=== PATIENT | female | born 1945 | race Caucasian/White ===

== ENCOUNTER 2017-03-11 09:42 | Day surgery (SDC) | payer MEDICARE, OTHER ==
[~2017-03-11 09:42] MED LIST: PROPOFOL INJ 200 MG/20 ML VIAL IV ONE
[2017-03-11 12:24] VITALS: BP 124/59
--- NOTE | 2017-03-11 13:00 | Operative Report ---
Operative Report DATE OF SURGERY: 03/11/17 Operative Report: The risks, benefits and alternatives of the procedure including risks of bleeding, perforation requiring surgery are explained to the patient detail and informed consent is obtained. Patient is taken back to the endoscopy suite and placed in a left, lateral decubital position. Timeout is called. Propofol medication is administered. An Olympus videoscope was inserted into the patient 's rectum the scope was then gradually advanced all the way to the cecum ,the cecum was identified by the usual anatomical landmarks of the ileocecal valve as well as the appendiceal office. Photodocumentation is obtained. Prep is good. Scope was then sequentially pulled back via the rest segments of the colon including the ascending colon, hepatic flexure, transverse colon, splenic flexure, descending colon and finally into the rectosigmoid portions of the colon. Which infection maneuvers performed. PREOPERATIVE DIAGNOSIS: Colon cancer screening. POSTOPERATIVE DIAGNOSIS: Colon polyp in the ascending colon is removed via biopsy forceps. Diverticulosis. Internal hemorrhoids OPERATION: Colonoscopy with biopsy SURGEON: SUNDEEP WYATT ANESTHESIA: LMAC TISSUE REMOVED OR ALTERED: Colon polyp is retrieved. COMPLICATIONS: None. ESTIMATED BLOOD LOSS: none. INTRAOPERATIVE FINDINGS: Colon polyp in the ascending colon is removed via biopsy forceps. Sigmoid diverticulosis. Internal hemorrhoids PROCEDURE: Patient tolerated the procedure well. No immediate postprocedure complications are noted. Patient is discharged in good condition. Discharge date 03/11/2017. Discharge diet: Regular. Discharge activity: Regular. 2-3 week follow-up to discuss findings. Patient is instructed to call the office or proceed to the emergency room should there be any further problems or questions. Five-year surveillance. We'll await on biopsies.
== END 2017-03-11 12:20 | disposition home or self-care (01) ==
LOC: END 09:42
PROVIDERS: ATTEND Internal Medicine Gastroenterology
PROC: 0DBK8ZX Excision of Ascending Colon, Via Natural or Artificial Opening Endoscopic, Diagnostic (ICD-10-PCS; principal; 2017-03-11 12:30)
DX: Z12.11 Encounter for screening for malignant neoplasm of colon (principal); K63.5 Polyp of colon; I10 Essential (primary) hypertension; E78.00 Pure hypercholesterolemia, unspecified; M19.90 Unspecified osteoarthritis, unspecified site; K57.30 Diverticulosis of large intestine without perforation or abscess without bleeding; K64.8 Other hemorrhoids; G20 Parkinson's disease; E07.9 Disorder of thyroid, unspecified; E66.9 Obesity, unspecified; Z79.899 Other long term (current) drug therapy; Z68.38 Body mass index [BMI] 38.0-38.9, adult
CPT/HCPCS: 45380; 88305 ×2; J2704; 810

== ENCOUNTER 2017-03-28 08:14 | Day surgery (SDC) | payer MEDICARE, OTHER ==
[2017-03-22 09:45] LABS: ABSOLUTE EOSINOPHILS # (AUTO) 0.1 10^3/uL (0.0-0.6); ABSOLUTE LYMPHOCYTES (AUTO) 1.2 10^3/uL (0.5-4.7); ABSOLUTE MONOCYTES (AUTO) 0.5 10^3/uL (0.1-1.4); ABSOLUTE NEUT (AUTO) 3.7 10^3/uL (1.7-8.2); BASOPHILS % (AUTO) 0.7 % (0-2); EOSINOPHILS % (AUTO) 1.9 % (0-6); HEMATOCRIT 40.9 % (36.0-47.0); HEMOGLOBIN 13.9 g/dL (12.0-15.5); HGB HCT DIFFERENCE 0.8; LYMPHOCYTES % (AUTO) 22.5 % (13-45); MEAN CORPUSCULAR HEMOGLOBIN 28.6 pg (27.0-33.4); MEAN CORPUSCULAR HGB CONC 34.1 g/dL (32.0-36.0); MEAN CORPUSCULAR VOLUME 84 fl (80-97); MONOCYTES % (AUTO) 8.8 % (3-13); RED BLOOD COUNT 4.88 10^6/uL (3.72-5.28); RED CELL DISTRIBUTION WIDTH 14.4 % (11.5-14.0); SEGMENTED NEUTROPHILS % (AUTO) 66.1 % (42-78); WHITE BLOOD COUNT 5.5 10^3/uL (4.0-10.5)
[2017-03-22 09:46] LABS: APPEARANCE,URINE CLEAR; BILIRUBIN,URINE NEGATIVE (NEGATIVE); GLUCOSE, URINE NEGATIVE (NEGATIVE); KETONES,URINE NEGATIVE (NEGATIVE); LEUKOCYTE ESTERASE,URINE NEGATIVE (NEGATIVE); NITRITE,URINE NEGATIVE (NEGATIVE); PROTEIN,URINE NEGATIVE (NEGATIVE); URINE SPECIFIC GRAVITY 1.013; UROBILINOGEN,URINE NEGATIVE mg/dL (<2.0)
[2017-03-22 10:06] LABS: ANION GAP 14 (5-19); BLOOD UREA NITROGEN 16 mg/dL (7-20); CALCIUM 10.5 mg/dL (8.4-10.2); CARBON DIOXIDE 26 mmol/L (22-30); CHLORIDE 104 mmol/L (98-107); CREATININE RESULT 0.65 mg/dL (0.52-1.25); GLUCOSE 107 mg/dL (75-110); POTASSIUM 3.8 mmol/L (3.6-5.0); SODIUM 143.6 mmol/L (137-145)
--- NOTE | 2017-03-22 21:53 | EKG REPORT ---
SEVERITY:- ABNORMAL ECG - SINUS RHYTHM NONSPECIFIC INTRAVENTRICULAR CONDUCTION DELAY : Confirmed by: Jodie Arvizu MD 22-Mar-2017 21:51:30
[~2017-03-28 08:14] MED LIST changes: +BUPIVACAINE HCL 0.25 % INJ/PF (2.5 MG/1 ML) 30 ML VIAL ONE; +BUPIVACAINE HCL 0.25% /EPINEPHRINE INJ/PF 30 ML SDV ONE; +CEFAZOLIN 2 GM/D5W RTU 2 GM/50 ML RTUPB IV PRN; +LACTATED RINGERS 1000 ML IV PRN; +LIDOCAINE 0.5% INJ-PF (5 MG/ML) 50 ML SDV SUBCUT PRN; +LIDOCAINE 1%/EPINEPHRINE INJ 20 ML VIAL ONE; -PROPOFOL INJ 200 MG/20 ML VIAL IV ONE
[2017-03-28] MEDS ORDERED: FENTANYL CITRATE INJ/PF 100 MCG/2 ML AMPUL ONE (09:58)
[2017-03-28] MEDS ORDERED: PROPOFOL INJ 200 MG/20 ML VIAL IV ONE (09:58)
[2017-03-28] MEDS ORDERED: MIDAZOLAM 2 MG/2 ML INJ ONE (09:58)
[2017-03-28] MEDS ORDERED: MORPHINE SULFATE 10 MG/ML INJ IV PRN (10:30)
[2017-03-28] MEDS ORDERED: MEPERIDINE HCL/PF INJ 25 MG/1 ML DISP.SYRIN IV PRN (10:30)
[2017-03-28] MEDS ORDERED: OXYCODONE-ACETAMINOPHEN 5-325 MG TABLET PO PRN ×2 (10:30)
[2017-03-28] MEDS ORDERED: DIPHENHYDRAMINE HCL 50 MG/ML VIAL IV PRN (10:30)
[2017-03-28] MEDS ORDERED: FENTANYL CITRATE INJ/PF 100 MCG/2 ML AMPUL IV PRN ×3 (10:30)
[2017-03-28] MEDS ORDERED: PROMETHAZINE HCL INJ 25 MG/1 ML VIAL IV PRN ×2 (10:30)
--- NOTE | 2017-03-28 11:13 | Operative Report ---
Operative Report DATE OF SURGERY: 03/28/17 PREOPERATIVE DIAGNOSIS: Right carpal tunnel syndrome POSTOPERATIVE DIAGNOSIS: Same OPERATION: Right carpal tunnel release SURGEON: MARCELINO FOREMAN ANESTHESIA: LMAC TISSUE REMOVED OR ALTERED: None COMPLICATIONS: None ESTIMATED BLOOD LOSS: <5ml INTRAOPERATIVE FINDINGS: As above PROCEDURE: Patient received preoperative antibiotics and then was brought to the OR and in a supine position was given local sedation. A up her arm tourniquet was applied to right upper extremity. I proceeded then to sterilize the hand with alcohol and proceeded to give a combination of lidocaine and Marcaine local field injection. At this point the right hand was prepped and draped in a normal surgical fashion. Once she is fully draped Esmarch was used to exsanguinate the right upper extremity and the tourniquet was inflated to 250 mmHg. Timeout was done identifying the right hand as correct site. At this point I did a inch and a half incision over the lateral aspect of the palm right over the carpal tunnel ligament. I used Metzenbaum scissors then to spread the subcutaneous tenderness fat and the palmar fascial with a self- retaining retractor was able then to retract the edges and I use a freer to expose the carpal tunnel ligament. I found the most distal end first and placed a small mosquito clamp. This protected the nerve and I then did an initial cut of the transverse carpal ligament. I migrated the clamp further to Further protect the median nerve and then excised the remaining ligament. [place] was used to depress the median nerve and then I used Metzenbaum scissors to then released the fascial tissue in the proximal forearm. I then proceeded to identify the median nerve and the motor branch of the median nerve which were intact. At this point the tourniquet was let down after 13 minutes and a bipolar was used to obtain hemostasis of any vessel bleed. I then proceeded to place 3 subcutaneous tissue sutures using 2-0 Vicryl. I then proceeded to place 3 3-0 nylon horizontal mattress stitches to close the skin layer. Xeroform 4 x 4 dressing and Tegaderm was applied over the wound. Patient was undraped and then sent to PACU in stable condition.
--- NOTE | 2017-03-28 11:17 | PDOC DISCHARGE SUMMARY ---
Discharge Summary (SDC) - Discharge Final Diagnosis: Right carpal tunnel release Date of Surgery: 03/28/17 Discharge Date: 03/28/17 Condition: Good Treatment or Instructions: Keep the right upper extremity elevated. Ice as needed. Change in 4 days, after that okay to shower and leave wound exposed to air. Follow-up in 10-14 days. Call back or see me sooner if there is any drainage redness increased pain and swelling out of proportion. Prescriptions: Hydrocodone/Acetaminophen [[place] 5-325 mg Tablet] 1 tab PO Q4HP PRN #10 tablet PRN Reason: Discharge Diet: As Tolerated Respiratory Treatments at Home: Deep Breathing/Coughing Discharge Activity: No Driving, No Lifting/Push/Pulling, Slowly Increase Activity, Walk Frequently Home Care Assistance: None Needed Report the Following to Your Physician Immediately: Shortness of Breath, Vomiting, Increase in Pain, Fever over 101 Degrees, Unusual Bleeding, Redness, Swelling, Warmth, Increased Soreness, Drainage-Yellow, Drainage-Joseph, Drainage- Foul Smelling, Numbness, Tingling Sensation
[2017-03-28] MEDS ORDERED: HYDROCODONE/ACETAMINOPHEN 5-325 MG TABLET PO PRN (11:18)
[2017-03-28 12:55] VITALS: BP 111/63
== END 2017-03-28 12:55 | disposition home or self-care (01) ==
LOC: OROUT 08:14
PROVIDERS: ATTEND Orthopaedic Surgery
PROC: 01N50ZZ Release Median Nerve, Open Approach (ICD-10-PCS; principal; 2017-03-28 10:15)
DX: G56.01 Carpal tunnel syndrome, right upper limb (principal); E03.9 Hypothyroidism, unspecified; I10 Essential (primary) hypertension; E78.00 Pure hypercholesterolemia, unspecified; G20 Parkinson's disease; M48.00 Spinal stenosis, site unspecified; E66.9 Obesity, unspecified; Z88.8 Allergy status to other drugs, medicaments and biological substances; Z79.899 Other long term (current) drug therapy; Z68.38 Body mass index [BMI] 38.0-38.9, adult
CPT/HCPCS: 93005; 36415 ×2; 84132; 85025; 80048; 81001; 71020; 93010; 64721; J2250; J3490; J2704; J0690; 1810; J3010

== ENCOUNTER 2017-05-17 10:15 | Emergency (ER) | payer MEDICARE, OTHER ==
--- NOTE | 2017-05-17 10:58 | ER Document Report ---
ED Medical Screen (RME) - General Chief Complaint: Tremor Stated Complaint: BACK PAIN Time Seen by Provider: 05/17/17 10:56 Mode of Arrival: Wheelchair Information source: Patient TRAVEL OUTSIDE OF THE U.S. IN LAST 30 DAYS: No - HPI Patient complains to provider of: Tremors, muscle aches Onset: Other - 4-6 weeks Quality of pain: Achy Severity: Moderate Pain Level: 3 Notes: 05/17/17 10:58 Patient is a 71-year-old female with a history of hypothyroidism and Parkinson' s disease, she presents to the emergency room could not complaining of 6 week history of increased tremors with muscle and joint pain, waking up in the middle night with racing thoughts at time, she has recently lost 50+ pounds which she attributes to weight watchers participation, however she is unsure when she last had her thyroid checked - Related Data Allergies/Adverse Reactions: valdecoxib [From Bextra] Allergy (Mild, Verified 05/17/17 10:32) PETECHIAE Past Medical History - Past Medical History Cardiac Medical History: Reports: Hx Coronary Artery Disease, Hx Hypertension Denies: Hx Heart Attack Pulmonary Medical History: Denies: Hx Asthma, Hx Bronchitis, Hx COPD, Hx Pneumonia Neurological Medical History: Denies: Hx Cerebrovascular Accident, Hx Seizures Renal/ Medical History: Denies: Hx Peritoneal Dialysis Musculoskeltal Medical History: Reports Hx Arthritis - Immunizations Hx Diphtheria, Pertussis, Tetanus Vaccination: Yes Physical Exam - Vital signs Vitals: Temp Pulse Resp BP Pulse Ox 98.3 F 70 20 143/83 H 96 05/17/17 10:32 05/17/17 10:32 05/17/17 10:32 05/17/17 10:32 05/17/17 10:32 Course - Vital Signs Vital signs: Temp Pulse Resp BP Pulse Ox 98.3 F 70 20 143/83 H 96 05/17/17 10:32 05/17/17 10:32 05/17/17 10:32 05/17/17 10:32 05/17/17 10:32
[2017-05-17 11:14] LABS: ABSOLUTE EOSINOPHILS # (AUTO) 0.1 10^3/uL (0.0-0.6); ABSOLUTE LYMPHOCYTES (AUTO) 1.2 10^3/uL (0.5-4.7); ABSOLUTE MONOCYTES (AUTO) 0.7 10^3/uL (0.1-1.4); ABSOLUTE NEUT (AUTO) 5.5 10^3/uL (1.7-8.2); BASOPHILS % (AUTO) 0.5 % (0-2); EOSINOPHILS % (AUTO) 0.7 % (0-6); HEMATOCRIT 44.6 % (36.0-47.0); HEMOGLOBIN 14.7 g/dL (12.0-15.5); HGB HCT DIFFERENCE -0.5; LYMPHOCYTES % (AUTO) 15.6 % (13-45); MEAN CORPUSCULAR HEMOGLOBIN 28.1 pg (27.0-33.4); MEAN CORPUSCULAR HGB CONC 32.9 g/dL (32.0-36.0); MEAN CORPUSCULAR VOLUME 85 fl (80-97); RED BLOOD COUNT 5.22 10^6/uL (3.72-5.28); RED CELL DISTRIBUTION WIDTH 13.8 % (11.5-14.0); SEGMENTED NEUTROPHILS % (AUTO) 74.2 % (42-78); WHITE BLOOD COUNT 7.4 10^3/uL (4.0-10.5)
[2017-05-17 11:37] LABS: ALANINE AMINOTRANSFERASE 22 U/L (9-52); ALBUMIN 4.7 g/dL (3.5-5.0); ALKALINE PHOSPHATASE 60 U/L (38-126); ANION GAP 13 (5-19); ASPARTATE AMINO TRANSFERASE 31 U/L (14-36); BILIRUBIN,DIRECT 0.2 mg/dL (0.0-0.4); BILIRUBIN,TOTAL 1.5 mg/dL (0.2-1.3); BLOOD UREA NITROGEN 17 mg/dL (7-20); CALCIUM 10.5 mg/dL (8.4-10.2); CARBON DIOXIDE 25 mmol/L (22-30); CHLORIDE 99 mmol/L (98-107); CREATINE KINASE 173 U/L (30-135); CREATININE RESULT 0.62 mg/dL (0.52-1.25); GLUCOSE 97 mg/dL (75-110); POTASSIUM 3.9 mmol/L (3.6-5.0); TOTAL PROTEIN 7.9 g/dL (6.3-8.2)
[2017-05-17 11:49] LABS: CREATINE KINASE MB 2.42 ng/mL (<4.55)
[2017-05-17 11:50] LABS: TROPONIN I < 0.012 ng/mL
[2017-05-17 11:55] LABS: FREE T3 2.91 pg/mL (2.77-5.27)
[2017-05-17 12:08] LABS: THYROID STIMULATING HORMONE 2.76 uIU/mL (0.47-4.68)
--- NOTE | 2017-05-17 12:22 | ER Document Report ---
ED General - General Mode of Arrival: Wheelchair Information source: Patient TRAVEL OUTSIDE OF THE U.S. IN LAST 30 DAYS: No - HPI Patient complains to provider of: Parkinson's worsening Onset: Other - 6-8 weeks ago Onset/Duration: Gradual, Worse Associated symptoms: Weakness, Other - Tremor, anxiety, depression <MIGUELINA HARDIN - Last Filed: 05/17/17 12:46> <KASHIF SALAS - Last Filed: 05/17/17 15:03> - General Chief Complaint: Tremor Stated Complaint: BACK PAIN Time Seen by Provider: 05/17/17 10:56 Notes: Patient is a 71-year-old female presenting to the emergency department with concerns of worsening Parkinson's symptoms over the past 6-8 weeks. Patient states that today her legs began to shake and felt weak," I cannot take it anymore." Patient states that she wakes up in the middle the night with racing thoughts and tremor. Also mentions "pulsating" throughout her back. Patient states that she will take a half a milligram of lorazepam, which helps until it wears off, but she does not take this often as she does not want to become dependent. Patient's neurologist is Dr. Vazquez, and the last time she was seen by him was in December 2016. Patient recently saw her primary care physician, Dr. Brink, but she did not mention her worsening symptoms at this appointment. Patient does have an upcoming appointment in [address] Brink plans to discuss the worsening symptoms as well as depression and anxiety secondary to the worsening of the symptoms. (MIGUELINA HARDIN) - Related Data Allergies/Adverse Reactions: valdecoxib [From Bextra] Allergy (Mild, Verified 05/17/17 10:32) PETECHIAE Past Medical History - General Information source: Patient - Social History Smoking Status: Never Smoker Chew tobacco use (# tins/day): No Frequency of alcohol use: None Drug Abuse: None Lives with: Spouse/Significant other Family History: Reviewed & Not Pertinent Patient has suicidal ideation: No Patient has homicidal ideation: No - Past Medical History Cardiac Medical History: Reports: Hx Coronary Artery Disease, Hx Hypercholesterolemia, Hx Hypertension Neurological Medical History: Reports: Other - Parkinson's dx 4 years ago Endocrine Medical History: Reports: Hx Hypothyroidism Musculoskeltal Medical History: Reports Hx Arthritis Psychiatric Medical History: Reports: Hx Anxiety, Hx Depression Past Surgical History: Reports: Hx Cholecystectomy, Hx Gynecologic Surgery, Hx Orthopedic Surgery - bilateral knees, Hx Tonsillectomy, Hx Tubal Ligation, Other - Carpal tunnel release March 2017 - Immunizations Hx Diphtheria, Pertussis, Tetanus Vaccination: Yes Hx Pneumococcal Vaccination: 11/01/16 <MIGUELINA HARDIN - Last Filed: 05/17/17 12:46> Review of Systems - Review of Systems Constitutional: No symptoms reported EENT: No symptoms reported Cardiovascular: No symptoms reported Respiratory: No symptoms reported Gastrointestinal: No symptoms reported Genitourinary: No symptoms reported Female Genitourinary: No symptoms reported Musculoskeletal: No symptoms reported Skin: No symptoms reported Hematologic/Lymphatic: No symptoms reported Neurological/Psychological: See HPI, Depression, Anxiety, Weakness, Tremor -: Yes All other systems reviewed and negative <MIGUELINA HARDIN - Last Filed: 05/17/17 12:46> Physical Exam - General General appearance: Alert, Anxious - Tearful In distress: None - HEENT Head: Normocephalic, Atraumatic Eyes: Normal Pupils: PERRL - Respiratory Respiratory status: No respiratory distress Chest status: Nontender Breath sounds: Normal Chest palpation: Normal - Cardiovascular Rhythm: Regular Heart sounds: Normal auscultation Murmur: No - Abdominal Inspection: Normal Distension: No distension Bowel sounds: Normal Tenderness: Nontender Organomegaly: No organomegaly - Back Back: Normal, Nontender - Extremities General upper extremity: Normal inspection, Nontender General lower extremity: Normal inspection, Nontender - Neurological Neuro grossly intact: Yes Cognition: Normal Orientation: AAOx4 [place] Coma Scale Eye Opening: Spontaneous [place] Coma Scale Verbal: Oriented [place] Coma Scale Motor: Obeys Commands [place] Coma Scale Total: 15 Speech: Normal - Psychological Associated symptoms: Normal affect, Anxious - Skin Skin Temperature: Warm Skin Moisture: Dry Skin Color: Normal <MIGUELINA HARDIN - Last Filed: 05/17/17 12:46> <KASHIF SALAS - Last Filed: 05/17/17 15:03> - Vital signs Vitals: Temp Pulse Resp BP Pulse Ox 98.3 F 70 20 143/83 H 96 05/17/17 10:32 05/17/17 10:32 05/17/17 10:32 05/17/17 10:32 05/17/17 10:32 - Neurological Notes: Tremor (MIGUELINA HARDIN) Course - Laboratory Result Diagrams: 05/17/17 11:00 05/17/17 11:00 <MIGUELINA HARDIN - Last Filed: 05/17/17 12:46> - Laboratory Result Diagrams: 05/17/17 11:00 05/17/17 11:00 <KASHIF SALAS - Last Filed: 05/17/17 15:03> - Vital Signs Vital signs: Temp Pulse Resp BP Pulse Ox 97.6 F 71 16 148/84 H 94 05/17/17 14:35 05/17/17 14:35 05/17/17 14:35 05/17/17 14:35 05/17/17 14:35 - Laboratory Laboratory results interpreted by me: 05/17/17 11:00 Calcium 10.5 H Total Bilirubin 1.5 H Creatine Kinase 173 H Discharge <MIGUELINA HARDIN - Last Filed: 05/17/17 12:46> <KASHIF SALAS - Last Filed: 05/17/17 15:03> - Discharge Clinical Impression: Parkinson's disease (tremor, stiffness, slow motion, unstable posture), Reactive depression (situational) Condition: Stable Disposition: HOME, SELF-CARE Additional Instructions: Continue your regular medications. Call [facility] to schedule an appointment. Follow-up with Dr. Brink next Saturday as planned. Follow-up with your neurologist as scheduled. RETURN TO THE EMERGENCY ROOM IF ANY NEW OR WORSENING SYMPTOMS. Referrals: ANGELA BRINK, DO [Primary Care Provider] - Follow up as needed Scribe Attestation: 05/17/17 15:03 I personally performed the services described in the documentation, reviewed and edited the documentation which was dictated to the scribe in my presence, and it accurately records my words and actions. (KASHIF SALAS) Scribe Documentation - Scribe Written by Kerriee:: Ligia Baker, 05/17/2017 1222 acting as scribe for :: Tj <MIGUELINA HARDIN - Last Filed: 05/17/17 12:46>
[2017-05-17] MEDS ORDERED: CITALOPRAM HYDROBROMIDE 20 MG TABLET PO ONE (13:04)
[2017-05-17] MEDS ORDERED: LORAZEPAM 0.5 MG TABLET PO ONE (14:23)
[2017-05-17 14:39] VITALS: BP 148/84
--- NOTE | 2017-05-17 15:12 | PSYCHOLOGICAL NOTE ---
Psych Note - Psych Note Psych Note: Patient is a 71-year-old female with a history of hypothyroidism and Parkinson' s disease, she presents to the emergency room with anxiety and depression. Patient disclosed that approximately 4 years ago she was diagnosed with Parkinson's disease. She states that approximately 6-8 weeks ago her symptoms have progressively gotten worse. She states that she has always suffered from anxiety and depression to include depression however lately it has become "too much." She continued disclosed that today she was at a doctor's appointment when her leg started to feel weak and was asked to bring to the hospital. Patient states that she was recently put on Paxil which she had good results with in the past however in the morning she is felt dizzy. Patient has an appointment on Saturday with her primary care physician (prescriber of Paxil) and on June 12 has an appointment with neurology. Patient disclosed that her main hobby is reading but her glasses need to be renewed. Patient disclosed that she will be submitted for new glasses next week. Patient was unable to identify additional coping skills. Patient has not gotten involved in the community since moving to [place] from [place]. Patient does not have many hobbies because previously hobbies included getting out of the home with her and taking public transportation. Patient is alert and orientated to person, place, time, and circumstance. Mood is dysphoric with restricted affect. Patient denies suicidal and homicidal ideation. Patient denies auditory visual hallucinations; patient is not demonstrating any behavior congruent with very taut responding to internal stimuli. No delusions are noted. Thought process is organized and linear. Conversational speech was within normal rate tone and prosody. Eye contact was well-maintained. Intellectual abilities appear to be average range. Attention and concentration are good. Insight, judgment, impulse control are good. 311 (F32.9) unspecified depressive disorder 300.00 (F41.9) unspecified anxiety disorder impression\\plan: Patient is psychologically clear for discharge. Patient does not meet IVC criteria per [place] GS 122C. Patient discloses depression and anxiety surrounding symptoms associated with Parkinson disease. Patient recommended for therapeutic services. Dr. Mcmahon was consulted on the care and management of this patient; attending physician is in agreement with recommendations and disposition
== END 2017-05-17 15:11 | disposition home or self-care (01) ==
LOC: ER 10:15
DX: G20 Parkinson's disease (principal); F32.9 Major depressive disorder, single episode, unspecified; F41.9 Anxiety disorder, unspecified; M54.9 Dorsalgia, unspecified; M79.1 Myalgia; E03.9 Hypothyroidism, unspecified; I25.10 Atherosclerotic heart disease of native coronary artery without angina pectoris; I10 Essential (primary) hypertension; Z90.49 Acquired absence of other specified parts of digestive tract; Z98.51 Tubal ligation status
CPT/HCPCS: 99284; 36415; 84439; 82553; 82550; 84443; 85025; 80053; 84484; 84481; A9270 ×2

== ENCOUNTER → 2017-05-17 | Outpatient (CLI) | payer MEDICARE, OTHER ==
--- NOTE | 2017-05-23 12:02 | WOMENS IMAGING REPORT ---
EXAM DESCRIPTION: 3D SCREENING MAMMO BILAT COMPLETED DATE/TIME: 05/17/2017 1:31 pm REASON FOR STUDY: ROUTINE SCREENING; 3D Z12.31 Z12.31 ENCNTR SCREEN MAMMOGRAM FOR MALIGNANT NEOPLAS M OF [place]RI[place]O COMPARISON: None. TECHNIQUE: Standard craniocaudal and mediolateral oblique views of each breast recorded using digita l acquisition and breast tomosynthesis. LIMITATIONS: None. FINDINGS: Findings present which are benign by mammographic criteria. No suspicious masses, calcifi cations or architectural distortion. Pertinent benign findings: Benign left breast intramammary lymph node. Benign skin calcifications bi laterally. Benign left breast parenchymal calcification. Read with the assistance of CAD. .[facility] - R2 Cenova Version 1.3 .[facility] Imaging - R2 Cenova Version 1.3 .[facility] - R2 Cenova Version 2.4 .[facility] [place]2 Cenova Version 2.4 .[facility] - R2 [employer] Teacher Version 9.2 Benign mammographic findings may include one or more of the following: Smooth masses, popcorn/rim/co arse calcifications, asymmetries, post-procedure changes, and lesions with long-standing stability. IMPRESSION: BENIGN MAMMOGRAPHIC FINDINGS. BIRADS 2 BREAST DENSITY: b. There are scattered areas of fibroglandular density. BIRAD: 2 BENIGN FINDING(S) RECOMMENDATION: RECOMMENDATION: ROUTINE SCREENING COMMENT: The patient has been notified of the results by letter per [place] requirements. Additional no tification policies are in place for contacting patient with suspicious or incomplete findings. Quality ID #225: The [employer] recommends an annual screening mammogram for women aged 40 years or over. This facility utilizes a reminder system to ensure that all patients receive reminder letters, and/or direct phone calls for appointments. This includes reminders for routine scr eening mammograms, diagnostic mammograms, or other Breast Imaging Interventions when appropriate. Th is patient will be placed in the appropriate reminder system. The [employer] (ACR) has developed recommendations for screening MRI of the breast s in certain patient populations, to be used in conjunction with mammography. Breast MRI surveillanc e may be appropriate for women with more than 20% lifetime risk of developing breast cancer as deter mined by genetic testing, significant family history of the disease, or history of mantle radiation f or Hodgkins Disease. ACR Practice Guidelines 2008. DBT Technology DBT is a type of tomographic mammography. With conventional mammography, overlapping breast tissue ma y make lesions difficult to detect, even with good compression. DBT uses an x-ray tube that rotates a round the breast, taking images at different angles. These images are then combined to create thin sl ices of the breast that the radiologist can view as a 3D reconstruction. The Hologic unit can perform full-field digital mammograms (2D imaging); or DBT (3D imaging); or both, in a combination mode that quickly performs both the mammogram and the tomosynthesis scan while the breast is still compressed. PQRS 6045F: Fluoroscopic imaging is not utilized for breast tomosynthesis. TECHNICAL DOCUMENTATION: FINDING NUMBER: (1) ASSESSMENT: (1) JOB ID: [id number] [employer]- All Rights Reserved
== END ==
LOC: WI 09:20
PROVIDERS: ATTEND Obstetrics & Gynecology
DX: Z12.31 Encounter for screening mammogram for malignant neoplasm of breast (principal)
CPT/HCPCS: 77063; G0202; 36415; 77067; 80053; 82550; 82553; 84439; 84443; 84481; 84484; 85025; 99284

== ENCOUNTER 2018-07-01 15:49 | Emergency (ER) | payer MEDICARE, OTHER ==
--- NOTE | 2018-07-01 16:28 | ER Document Report ---
ED Medical Screen (RME) - General Chief Complaint: Shoulder Injury Stated Complaint: SHOULDER PAIN Time Seen by Provider: 07/01/18 16:27 Mode of Arrival: Ambulatory Information source: Patient Notes: This is a 72-year-old woman with a history of Parkinson's disease who lost her footing and fell back today. She presents with pain to the right shoulder and inability to lift her arm. Patient denies hitting her head. She denies any headache, chest pain, abdominal pain or hip pain. On exam in triage, patient does have significant reduction in range of motion of the right shoulder. TRAVEL OUTSIDE OF THE U.S. IN LAST 30 DAYS: No - Related Data Allergies/Adverse Reactions: valdecoxib [From Bextra] Allergy (Mild, Verified 07/01/18 16:23) PETECHIAE Past Medical History - Social History Chew tobacco use (# tins/day): No Frequency of alcohol use: None Drug Abuse: None - Past Medical History Cardiac Medical History: Reports: Hx Coronary Artery Disease, Hx Hypercholesterolemia, Hx Hypertension Denies: Hx Heart Attack Pulmonary Medical History: Denies: Hx Asthma, Hx Bronchitis, Hx COPD, Hx Pneumonia Neurological Medical History: Denies: Hx Cerebrovascular Accident, Hx Seizures Endocrine Medical History: Reports: Hx Hypothyroidism Renal/ Medical History: Denies: Hx Peritoneal Dialysis Musculoskeltal Medical History: Reports Hx Arthritis Psychiatric Medical History: Reports: Hx Anxiety, Hx Depression Past Surgical History: Reports: Hx Cholecystectomy, Hx Gynecologic Surgery, Hx Orthopedic Surgery - bilateral knees, Hx Tonsillectomy, Hx Tubal Ligation, Other - Carpal tunnel release March 2017 - Immunizations Hx Diphtheria, Pertussis, Tetanus Vaccination: Yes Physical Exam - Vital signs Vitals: Temp Pulse Resp BP Pulse Ox 97.8 F 66 20 120/72 98 07/01/18 15:57 07/01/18 15:57 07/01/18 15:57 07/01/18 15:57 07/01/18 15:57 Course - Vital Signs Vital signs: Temp Pulse Resp BP Pulse Ox 97.8 F 66 20 120/72 98 07/01/18 16:03 07/01/18 16:03 07/01/18 16:03 07/01/18 16:03 07/01/18 16:03 Doctor's Discharge - Discharge Referrals: HAILEE,ANGELA AYAH, DO [Primary Care Provider] - Follow up as needed
--- NOTE | 2018-07-01 16:28 | RADIOLOGY REPORT (SQ) ---
EXAM DESCRIPTION: SHOULDER RIGHT 2 OR MORE VIEWS COMPLETED DATE/TIME: 07/01/2018 4:15 pm REASON FOR STUDY: Fell- injured R shoulder; ? dislocation COMPARISON: None. NUMBER OF VIEWS: Three views. TECHNIQUE: Internal rotation, external rotation, and Y view images acquired of the right shoulder. LIMITATIONS: None. FINDINGS: MINERALIZATION: Normal. BONES: No acute fracture or dislocation. No worrisome bone lesions. JOINTS: No dislocation. VISUALIZED LUNGS AND RIBS: No pneumothorax. No rib fracture. SOFT TISSUES: No radiopaque foreign body. OTHER: No other significant finding. IMPRESSION: NEGATIVE STUDY OF THE RIGHT SHOULDER. NO RADIOGRAPHIC EVIDENCE OF ACUTE INJURY. TECHNICAL DOCUMENTATION: JOB ID: [id number] [employer]- All Rights Reserved Reading location - IP/workstation name: [email or web address]
--- NOTE | 2018-07-01 17:18 | RADIOLOGY REPORT (SQ) ---
EXAM DESCRIPTION: CT RT UPPER EXTREMITY WITHOUT COMPLETED DATE/TIME: 07/01/2018 4:46 pm REASON FOR STUDY: right shoulder pain s/p fall COMPARISON: Radiographs 07/01/2018 TECHNIQUE: Axial imaging performed through the rightshoulder with reformatted oblique coronal and ob lique sagittal imaging windowed for bone and soft tissues. All CT scanners at this facility use dose modulation, iterative reconstruction, and/or weight based d osing when appropriate to reduce radiation dose to as low as reasonably achievable (ALARA). [facility]: Dose Right [facility]: CareDose [facility]: Dose Right [facility]: Teradose 4D [facility]: Smart Reddit RADIATION DOSE: CT Rad equipment meets quality standard of care and radiation dose reduction techniq ues were employed. CTDIvol: 12.4 mGy. DLP: 314 mGy-cm. mGy. LIMITATIONS: No contrast is present in the joint. FINDINGS: SOFT TISSUES: No masses. Soft tissue planes are maintained. No hematoma is suggested. BONY ARCHITECTURE: No fracture is present. GLENOHUMERAL JOINT: There is no dislocation. ACROMION AND AC JOINT: Degenerative joint changes are present ROTATOR CUFF: No contrast is present in the joint. There is mild narrowing of the subacromial space. GLENOID, LABRUM AND BICEPS: No significant abnormality. OTHER: No other significant finding. IMPRESSION: Acromioclavicular degenerative joint changes. No acute abnormality is seen. There is m ild narrowing of the subacromial space which may suggest some degree of chronic rotator cuff disease. Consider MRI for further evaluation if clinically indicated. TECHNICAL DOCUMENTATION: JOB ID: [id number] Quality ID # [id number]: Final reports with documentation of one or more dose reduction techniques (e.g., Au tomated exposure control, adjustment of the mA and/or kV according to patient size, use of iterative reconstruction technique) 2010 [employer]- All Rights Reserved Reading location - IP/workstation name: [email or web address]
[2018-07-01] MEDS ORDERED: KETOROLAC TROMETHAMINE 10 MG TABLET PO ONE (17:58)
--- NOTE | 2018-07-01 18:12 | ER Document Report ---
ED General - General Chief Complaint: Shoulder Injury Stated Complaint: SHOULDER PAIN Time Seen by Provider: 07/01/18 16:27 Mode of Arrival: Ambulatory Information source: Patient Notes: 72-year-old female history of Parkinson's presents with complaints of right shoulder pain. Patient notes she fell backwards did not strike her head did not hit her neck. Patient admits to right shoulder pain. Notes pain with range of motion TRAVEL OUTSIDE OF THE [place] IN LAST 30 DAYS: No - HPI Onset: Just prior to arrival Onset/Duration: Sudden Quality of pain: Sharp Severity: Mild Pain Level: 1 Associated symptoms: Body/muscle aches Exacerbated by: Movement Relieved by: Denies Similar symptoms previously: No Recently seen / treated by doctor: No - Related Data Allergies/Adverse Reactions: valdecoxib [From Bextra] Allergy (Mild, Verified 07/01/18 16:23) PETECHIAE Past Medical History - General Information source: Patient - Social History Smoking Status: Never Smoker Cigarette use (# per day): No Chew tobacco use (# tins/day): No Smoking Education Provided: No Frequency of alcohol use: None Drug Abuse: None Family History: Reviewed & Not Pertinent Patient has suicidal ideation: No Patient has homicidal ideation: No - Past Medical History Cardiac Medical History: Reports: Hx Coronary Artery Disease, Hx Hypercholesterolemia, Hx Hypertension Denies: Hx Heart Attack Pulmonary Medical History: Denies: Hx Asthma, Hx Bronchitis, Hx COPD, Hx Pneumonia Neurological Medical History: Denies: Hx Cerebrovascular Accident, Hx Seizures Endocrine Medical History: Reports: Hx Hypothyroidism Renal/ Medical History: Denies: Hx Peritoneal Dialysis Musculoskeletal Medical History: Reports Hx Arthritis Psychiatric Medical History: Reports: Hx Anxiety, Hx Depression Past Surgical History: Reports: Hx Cholecystectomy, Hx Gynecologic Surgery, Hx Orthopedic Surgery - bilateral knees, Hx Tonsillectomy, Hx Tubal Ligation, Other - Carpal tunnel release March 2017 - Immunizations Hx Diphtheria, Pertussis, Tetanus Vaccination: Yes Hx Pneumococcal Vaccination: 11/01/16 Review of Systems - Review of Systems Notes: REVIEW OF SYSTEMS: CONSTITUTIONAL : Denies fever, chills, or sweats. Denies recent illness. EENT: Denies eye, ear, throat, or mouth pain or symptoms. Denies nasal or sinus congestion or discharge. Denies throat, tongue, or mouth swelling or difficulty swallowing. CARDIOVASCULAR: Denies chest pain. Denies palpitations or racing or irregular heart beat. Denies ankle edema. RESPIRATORY: Denies cough, cold, or chest congestion. Denies shortness of breath, difficulty breathing, or wheezing. GASTROINTESTINAL: Denies abdominal pain or distention. Denies nausea, vomiting , or diarrhea. Denies blood in vomitus, stools, or per rectum. Denies black, tarry stools. Denies constipation. GENITOURINARY: Denies difficulty urinating, painful urination, burning, frequency, blood in urine, or discharge. FEMALE GENITOURINARY: Denies vaginal bleeding, heavy or abnormal periods, irregular periods. Denies vaginal discharge or odor. MUSCULOSKELETAL: Admits to right shoulder pain SKIN: Denies rash, lesions or sores. HEMATOLOGIC : Denies easy bruising or bleeding. LYMPHATIC: Denies swollen, enlarged glands. NEUROLOGICAL: Denies confusion or altered mental status. Denies passing out or loss of consciousness. Denies dizziness or lightheadedness. Denies headache. Denies weakness or paralysis or loss of use of either side. Denies problems with gait or speech. Denies sensory loss, numbness, or tingling. Denies seizures. PSYCHIATRIC: Denies anxiety or stress. Denies depression, suicidal ideation, or homicidal ideation. ALL OTHER SYSTEMS REVIEWED AND NEGATIVE. PHYSICAL EXAMINATION: GENERAL: Well-appearing, well-nourished and in no acute distress. HEAD: Atraumatic, normocephalic. EYES: Pupils equal round and reactive to light, extraocular movements intact, conjunctiva are normal. ENT: Nares patent, oropharynx clear without exudates. Moist mucous membranes. NECK: Normal range of motion, supple without lymphadenopathy LUNGS: Breath sounds clear to auscultation bilaterally and equal. No wheezes rales or rhonchi. HEART: Regular rate and rhythm without murmurs ABDOMEN: Soft, nontender, nondistended abdomen. No guarding, no rebound. No masses appreciated. Female : deferred Musculoskeletal: Limited range of motion of the right shoulder secondary to pain NEUROLOGICAL: Cranial nerves grossly intact. Normal speech, normal gait. Normal sensory, motor exams PSYCH: Normal mood, normal affect. SKIN: Warm, Dry, normal turgor, no rashes or lesions noted. Dictation was performed using ER[employer] recognition software Physical Exam - Vital signs Vitals: Temp Pulse Resp BP Pulse Ox 97.8 F 66 20 120/72 98 07/01/18 15:57 07/01/18 15:57 07/01/18 15:57 07/01/18 15:57 07/01/18 15:57 Course - Re-evaluation Re-evalutation: 07/01/18 18:13 X-ray noted no significant abnormality, patient was sent for CT which shows chronic rotator cuff tenderness possible chronic issues. Overall patient looks well is in no distress will be given Toradol. I did speak with the patient's orthopedic physician who agrees with assessment and plan After performing a Medical Screening Examination, I estimate there is LOW risk for INTRACRANIAL HEMORRHAGE, UNSTABLE SPINE FRACTURE, CENTRAL CORD SYNDROME, CAUDA EQUINA, THORACIC AORTIC DISSECTION, PNEUMOTHORAX, PERFORATED BOWEL, RUPTURED ABDOMINAL AORTIC ANEURYSM, ACUTE TENDON RUPTURE, COMPARTMENT SYNDROME, or OPEN FRACTURE, thus I consider the discharge disposition reasonable. Also, there is no evidence or peritonitis, sepsis, or toxicity. I have reevaluated this patient multiple times and no significant life threatening changes are noted. The patient and I have discussed the diagnosis and risks, and we agree with discharging home to follow-up with their primary doctor with the understanding that symptoms and presentations can change. We also discussed returning to the Emergency Department immediately if new or worsening symptoms occur. We have discussed the symptoms which are most concerning (e.g., bloody stool, fever, changing or worsening pain, vomiting) that necessitate immediate return. - Vital Signs Vital signs: Temp Pulse Resp BP Pulse Ox 97.8 F 66 20 120/72 98 07/01/18 16:03 07/01/18 16:03 07/01/18 16:03 07/01/18 16:03 07/01/18 16:03 Discharge - Discharge Clinical Impression: Right shoulder pain Qualifiers: Chronicity: acute Qualified Code(s): M25.511 - Pain in right shoulder Condition: Stable Disposition: HOME, SELF-CARE Instructions: Rotator Cuff Injury ([facility]) Referrals: ANGELA STEPHEN, [Primary Care Provider] - Follow up as needed
[2018-07-01 18:49] VITALS: BP 152/82
== END 2018-07-01 19:05 | disposition home or self-care (01) ==
LOC: ER 15:49
DX: M25.511 Pain in right shoulder (principal); W19.XXXA Unspecified fall, initial encounter; M79.1 Myalgia; E78.00 Pure hypercholesterolemia, unspecified; I10 Essential (primary) hypertension; E03.9 Hypothyroidism, unspecified; Z90.49 Acquired absence of other specified parts of digestive tract; Z98.51 Tubal ligation status
CPT/HCPCS: 99284; 73030; 73200; A9270; J3490

== ENCOUNTER → 2018-11-11 | Outpatient (CLI) | payer MEDICARE, OTHER ==
[2018-11-11 11:31] LABS: ABSOLUTE BASOPHILS # (AUTO) 0.1 10^3/uL (0.0-0.2); ABSOLUTE EOSINOPHILS # (AUTO) 0.1 10^3/uL (0.0-0.6); ABSOLUTE LYMPHOCYTES (AUTO) 2.1 10^3/uL (0.5-4.7); ABSOLUTE MONOCYTES (AUTO) 0.8 10^3/uL (0.1-1.4); ABSOLUTE NEUT (AUTO) 8.2 10^3/uL (1.7-8.2); BASOPHILS % (AUTO) 0.5 % (0-2); EOSINOPHILS % (AUTO) 1.2 % (0-6); HEMATOCRIT 43.6 % (36.0-47.0); HEMOGLOBIN 14.7 g/dL (12.0-15.5); LYMPHOCYTES % (AUTO) 18.6 % (13-45); MEAN CORPUSCULAR HEMOGLOBIN 29.1 pg (27.0-33.4); MEAN CORPUSCULAR HGB CONC 33.7 g/dL (32.0-36.0); MEAN CORPUSCULAR VOLUME 86 fl (80-97); MONOCYTES % (AUTO) 7.2 % (3-13); PLATELET COUNT 286 10^3/uL (150-450); RED BLOOD COUNT 5.06 10^6/uL (3.72-5.28); SEGMENTED NEUTROPHILS % (AUTO) 72.5 % (42-78); TOTAL CELLS COUNTED % (AUTO) 100 %; WHITE BLOOD COUNT 11.4 10^3/uL (4.0-10.5)
== END ==
LOC: OD 10:47
PROVIDERS: ATTEND Student in an Organized Health Care Education/Training Program
DX: D72.829 Elevated white blood cell count, unspecified (principal)
CPT/HCPCS: 36415; 85025

== ENCOUNTER → 2019-06-26 | Outpatient (CLI) | payer MEDICARE, OTHER ==
[2019-06-26 11:21] LABS: ALANINE AMINOTRANSFERASE 7 U/L (9-52); ALBUMIN 4.5 g/dL (3.5-5.0); ALKALINE PHOSPHATASE 44 U/L (38-126); ANION GAP 10 (5-19); ASPARTATE AMINO TRANSFERASE 25 U/L (14-36); BILIRUBIN,DIRECT 0.2 mg/dL (0.0-0.4); BILIRUBIN,TOTAL 0.9 mg/dL (0.2-1.3); BLOOD UREA NITROGEN 18 mg/dL (7-20); CALCIUM 10.5 mg/dL (8.4-10.2); CARBON DIOXIDE 29 mmol/L (22-30); CHLORIDE 102 mmol/L (98-107); CHOLESTEROL 181.13 mg/dL (0-200); GLUCOSE 91 mg/dL (75-110); TOTAL PROTEIN 7.2 g/dL (6.3-8.2); TRIGLYCERIDES 160 mg/dL (<150)
[2019-06-26 11:34] LABS: DIRECT LDL 105 mg/dL (<100)
== END ==
LOC: OD 09:56
PROVIDERS: ATTEND Family Medicine
DX: E03.9 Hypothyroidism, unspecified (principal); E78.5 Hyperlipidemia, unspecified; Z13.1 Encounter for screening for diabetes mellitus
CPT/HCPCS: 36415; 80053; 80061; 84443

== ENCOUNTER 2019-11-09 09:25 | Emergency (ER) | payer MEDICARE, OTHER ==
--- NOTE | 2019-11-09 11:34 | ER Document Report ---
ED Extremity Problem, Lower - General Chief Complaint: Leg Pain Stated Complaint: LEFT LEG PAIN Time Seen by Provider: 11/09/19 11:12 Primary Care Provider: BASHIR EDUARDO MD [Primary Care Provider] - Follow up as needed Notes: 74-year-old female with Parkinson's disease presents to the emergency department with left lower extremity pain x1 week. Patient states that the pain is constant and severe, sharp, originates in the buttock and radiates down her leg. Denies any unilateral leg swelling, denies fevers, denies redness or warmth of the extremity. Patient, daughter, are concerned that she has a blood clot. Not on anticoagulation. No acute shortness of breath or chest pain. TRAVEL OUTSIDE OF THE [place] IN LAST 30 DAYS: No - Related Data Allergies/Adverse Reactions: valdecoxib [From Bextra] Allergy (Mild, Verified 07/01/18 16:23) PETECHIAE Past Medical History - Social History Smoking Status: Never Smoker Frequency of alcohol use: None Drug Abuse: None Family History: Reviewed & Not Pertinent Patient has suicidal ideation: No Patient has homicidal ideation: No - Past Medical History Cardiac Medical History: Reports: Hx Coronary Artery Disease, Hx Hypercholesterolemia, Hx Hypertension Denies: Hx Heart Attack Pulmonary Medical History: Denies: Hx Asthma, Hx Bronchitis, Hx COPD, Hx Pneumonia Neurological Medical History: Denies: Hx Cerebrovascular Accident, Hx Seizures Endocrine Medical History: Reports: Hx Hypothyroidism Renal/ Medical History: Denies: Hx Peritoneal Dialysis Musculoskeletal Medical History: Reports Hx Arthritis Psychiatric Medical History: Reports: Hx Anxiety, Hx Depression Past Surgical History: Reports: Hx Cholecystectomy, Hx Gynecologic Surgery, Hx Orthopedic Surgery - bilateral knees, Hx Tonsillectomy, Hx Tubal Ligation, Other - Carpal tunnel release March 2017 - Immunizations Hx Diphtheria, Pertussis, Tetanus Vaccination: Yes Hx Pneumococcal Vaccination: 11/01/16 Review of Systems - Review of Systems Constitutional: See HPI EENT: No symptoms reported Cardiovascular: See HPI Respiratory: See HPI Gastrointestinal: No symptoms reported Genitourinary: No symptoms reported Female Genitourinary: No symptoms reported Musculoskeletal: See HPI Skin: No symptoms reported Hematologic/Lymphatic: No symptoms reported Neurological/Psychological: No symptoms reported Physical Exam - Vital signs Vitals: Temp Pulse Resp BP Pulse Ox 97.9 F 58 L 16 125/87 H 97 11/09/19 09:39 11/09/19 09:39 11/09/19 09:39 11/09/19 09:39 11/09/19 09:39 - Notes Notes: PHYSICAL EXAMINATION: Reviewed vital signs and charting by RN GENERAL: Alert, interacts well. No acute distress. HEAD: Normocephalic, atraumatic. EYES: Pupils equal and round. Extraocular movements intact. ENT: Oral mucosa moist, tongue midline. NECK: Full range of motion. Trachea midline. ABDOMEN: soft, non-tender. No distention. Bowel sounds present EXTREMITIES: Moves all 4 extremities spontaneously. No edema, No cyanosis. Pain with palpation over the left SI joint, pain with palpation in the popliteal fossa and just distal midline, 5/5 drink dorsiflexion and plantarflexion PSYCH: Normal affect, normal mood. SKIN: Warm, dry, normal turgor. No rashes or lesions noted. Course - Re-evaluation Re-evalutation: 11/09/19 11:33 Well-appearing and nontoxic. Differential diagnosis includes lumbar radiculopathy on the left side versus DVT. Venous Doppler ordered. Wells score 1. 11/09/19 12:59 Doppler unofficially negative for DVT. Patient's pain most likely secondary to lumbar radiculopathy. I explained this to patient and family. Also, I spoke with Porfirio, nurse practitioner physicians assistant, who is going to talk with the family to help with some home PT or home health aide. Patient given strict return precautions. She is stable for discharge. - Vital Signs Vital signs: Temp Pulse Resp BP Pulse Ox 97.9 F 58 L 16 125/87 H 97 11/09/19 10:05 11/09/19 10:05 11/09/19 10:05 11/09/19 10:05 11/09/19 10:05 - Laboratory Result Diagrams: 11/09/19 11:45 11/09/19 11:45 Laboratory results interpreted by me: 11/09/19 11:45 WBC 13.1 H RDW 14.6 H Seg Neuts % (Manual) 34 L Lymphocytes % (Manual) 53 H Abs Lymphs (Manual) 7.6 H Discharge - Discharge Clinical Impression: Leg pain, left Condition: Good Disposition: HOME, SELF-CARE Additional Instructions: You were seen in the emergency department this morning for left leg pain. The Doppler study was negative for DVT and this is all very reassuring. Because your pain does periodically come from your lower backslash buttock, it is most likely due to a nerve impingement. Please follow-up with your primary doctor in the next 24 to 48 hours to discuss your emergency department visit. Please retu rn to the emergency department if you develop acute weakness, inability to bear weight on your leg at all, you develop acute shortness of breath or chest pain, or you have any other concerning symptoms. Referrals: BASHIR EDUARDO MD [Primary Care Provider] - Follow up as needed
[2019-11-09 12:07] LABS: HEMATOCRIT 39.7 % (36.0-47.0); HEMOGLOBIN 13.1 g/dL (12.0-15.5); MEAN CORPUSCULAR HEMOGLOBIN 28.2 pg (27.0-33.4); MEAN CORPUSCULAR HGB CONC 32.9 g/dL (32.0-36.0); MEAN CORPUSCULAR VOLUME 86 fl (80-97); PLATELET COUNT 191 10^3/uL (150-450); RED BLOOD COUNT 4.62 10^6/uL (3.72-5.28); RED CELL DISTRIBUTION WIDTH 14.6 % (11.5-14.0); WHITE BLOOD COUNT 13.1 10^3/uL (4.0-10.5)
[2019-11-09 12:24] LABS: ALBUMIN 4.1 g/dL (3.5-5.0); ALKALINE PHOSPHATASE 45 U/L (38-126); ANION GAP 9 (5-19); ASPARTATE AMINO TRANSFERASE 28 U/L (14-36); BILIRUBIN,DIRECT 0.1 mg/dL (0.0-0.4); BILIRUBIN,TOTAL 0.8 mg/dL (0.2-1.3); BLOOD UREA NITROGEN 17 mg/dL (7-20); CALCIUM 9.8 mg/dL (8.4-10.2); CARBON DIOXIDE 28 mmol/L (22-30); CHLORIDE 103 mmol/L (98-107); GLUCOSE 89 mg/dL (75-110); POTASSIUM 3.7 mmol/L (3.6-5.0); TOTAL PROTEIN 6.9 g/dL (6.3-8.2)
[2019-11-09 12:28] LABS: ABSOLUTE LYMPHOCYTES# (MANUAL) 7.6 10^3/uL (0.5-4.7); ABSOLUTE MONOCYTES # (MANUAL) 0.7 10^3/uL (0.1-1.4); BASOPHILS % (MANUAL) 1 % (0-2); EOSINOPHILS % (MANUAL) 2 % (0-6); LYMPHOCYTES % (MANUAL) 53 % (13-45); MONOCYTES % (MANUAL) 5 % (3-13); SEGMENTED NEUTROPHILS % (MAN) 34 % (42-78); TOTAL CELLS COUNTED 100
[2019-11-09 12:29] LABS: ANISOCYTOSIS SLIGHT; OVALOCYTES 1+; PLATELET COMMENT ADEQUATE; POIKILOCYTOSIS 1+
[2019-11-09] MEDS ORDERED: LIDOCAINE 5% (700 MG) TRANSDERMAL ADH..PATCH TP ONE (13:06)
[2019-11-09 13:24] VITALS: BP 134/80
--- NOTE | 2019-11-09 15:12 | XCELERA REPORT ---
[address] [facility] [place] [address] Lower Extremity Venous Evaluation Procedure: Color flow and duplex imaging of the veins of the left lower extremity as well as the right Common Femoral vein. Right Sided Venous Evaluation The right common femoral vein is fully compressible. Spontaneous and phasic flow is present in the right common femoral vein. Left Sided Venous Evaluation Normal vessel filling wall to wall, compression and augmentation as well as Colour flow down to the infrageniculate veins. Interpretation Summary No duplex evidence of DVT or obstruction in the left lower extremity nor in the right Common Femoral vein. Name: ADAIR MARSHALL Age: 74 yrs Gender: Female : 1945 Patient Status: Emergency Patient Location: ER Study Date: 11/09/2019 12:35 PM Reason For Study: LLE pain, r/o DVT Ordering Physician: SHAWNEE BUENO Performed By: Goldy Anderson : SHAWNEE BUENO > José Miguel Grier
== END 2019-11-09 13:24 | disposition home or self-care (01) ==
LOC: ER 09:25
DX: M79.605 Pain in left leg (principal); M25.559 Pain in unspecified hip; I25.10 Atherosclerotic heart disease of native coronary artery without angina pectoris; I10 Essential (primary) hypertension; Z88.8 Allergy status to other drugs, medicaments and biological substances
CPT/HCPCS: 99284; 36415; 85025; 80053; 93971 ×2; A9270

== ENCOUNTER → 2020-07-26 | Outpatient (CLI) | payer MEDICARE, OTHER ==
[2020-07-26 11:22] LABS: ALBUMIN 4.7 g/dL (3.5-5.0); ALKALINE PHOSPHATASE 43 U/L (38-126); ANION GAP 9 (5-19); ASPARTATE AMINO TRANSFERASE 23 U/L (14-36); BILIRUBIN,DIRECT 0.4 mg/dL (0.0-0.4); BILIRUBIN,TOTAL 1.5 mg/dL (0.2-1.3); BLOOD UREA NITROGEN 20 mg/dL (7-20); CALCIUM 10.4 mg/dL (8.4-10.2); CARBON DIOXIDE 30 mmol/L (22-30); CHLORIDE 99 mmol/L (98-107); CHOLESTEROL 161.56 mg/dL (0-200); GLUCOSE 99 mg/dL (75-110); TOTAL PROTEIN 7.5 g/dL (6.3-8.2); TRIGLYCERIDES 158 mg/dL (<150)
[2020-07-26 11:38] LABS: DIRECT LDL 81 mg/dL (<100)
[2020-07-26 11:47] LABS: VLDL CHOLESTEROL 31.6 mg/dL (10-31)
== END ==
LOC: OD 09:52
PROVIDERS: ATTEND Family Medicine
DX: E03.9 Hypothyroidism, unspecified (principal); E78.5 Hyperlipidemia, unspecified; Z13.1 Encounter for screening for diabetes mellitus
CPT/HCPCS: 36415; 80053; 80061; 84443

== ENCOUNTER → 2020-11-04 | Outpatient (CLI) | payer MEDICARE, OTHER ==
--- NOTE | 2020-11-04 12:36 | RADIOLOGY REPORT (SQ) ---
EXAM DESCRIPTION: CERV SP 3 VIEW OR LESS IMAGES COMPLETED DATE/TIME: 11/04/2020 10:58 am REASON FOR STUDY: M54.2 CERVICALGIA M54.2 CERVICALGIA COMPARISON: None. NUMBER OF VIEWS: Three views. TECHNIQUE: AP, lateral and odontoid radiographic images acquired of the cervical spine. LIMITATIONS: None. FINDINGS: MINERALIZATION: Normal. ALIGNMENT: Cervical kyphosis. VERTEBRAE: Vertebral bodies of normal height. DISCS: Disc spaces are narrowed from C4-C7 with marginal osteophytes. HARDWARE: None in the spine. SOFT TISSUES: No masses or calcifications. Lung apices clear. OTHER: Hypertrophic facet changes are present at several levels. IMPRESSION: Extensive degenerative disc disease and spondylosis. Kyphosis. Facet arthropathy. TECHNICAL DOCUMENTATION: JOB ID: [id number] 2010 [employer]- All Rights Reserved Reading location - IP/workstation name: [email or web address]
== END ==
LOC: RAD 10:28
PROVIDERS: ATTEND Family Medicine
DX: M50.323 Other cervical disc degeneration at C6-C7 level (principal); M47.812 Spondylosis without myelopathy or radiculopathy, cervical region; M40.292 Other kyphosis, cervical region
CPT/HCPCS: 72040

== ENCOUNTER 2020-11-28 09:41 | Day surgery (SDC) | payer MEDICARE, OTHER ==
[~2020-11-28 09:41] MED LIST changes: -BUPIVACAINE HCL 0.25 % INJ/PF (2.5 MG/1 ML) 30 ML VIAL ONE; -BUPIVACAINE HCL 0.25% /EPINEPHRINE INJ/PF 30 ML SDV ONE; -CEFAZOLIN 2 GM/D5W RTU 2 GM/50 ML RTUPB IV PRN; +CHONDR SU A NA/HYALUR INTRAOC KIT (SURGICARE) ONE; +EPINEPHRINE INJ/PF 1 MG/1 ML AMPULE ONE; +KETOROLAC TROMETHAMINE 0.45% 4 DROP/0.4 ML DROPERETTE OD PRN; -LACTATED RINGERS 1000 ML IV PRN; -LIDOCAINE 0.5% INJ-PF (5 MG/ML) 50 ML SDV SUBCUT PRN; -LIDOCAINE 1%/EPINEPHRINE INJ 20 ML VIAL ONE; +LIDOCAINE 1%/PHENYLEPHRINE 1.5% 1 ML VIAL ONE; +MIDAZOLAM 2 MG/2 ML INJ ONE
[2020-11-28] MEDS: TROPICAMIDE 1% OPH SOLN 15 ML OD PRN ×3 (10:07→10:28)
[2020-11-28] MEDS: CYCLOPENTOLATE 0.2%/PHENYLEPHRINE 1% OPH SOLN 2 ML OD PRN ×3 (10:07→10:28)
[2020-11-28] MEDS: TETRACAINE HCL 0.5% OPH SOLN 4 ML OD PRN ×3 (10:07→10:38)
[2020-11-28] MEDS: BESIFLOXACIN HCL 0.6% OPH SUSP 5 ML BOTTLE OD PRN ×4 (10:07→11:00)
[2020-11-28] MEDS: DORZOLAMIDE HCL 2%/TIMOLOL MALEAT 0.5% OPH SOLN 10 ML OD PRN ×2 (11:00)
[2020-11-28] MEDS: PREDNISOLONE ACETATE 1% OPH SUSP 5 ML OD PRN ×2 (11:00)
--- NOTE | 2020-11-28 11:07 | Operative Report ---
Operative Report-[facility] Operative Report: DATE OF SURGERY: November 28, 2020 PREOPERATIVE DIAGNOSIS: NUCLEAR CATARACT, RIGHT EYE. POSTOPERATIVE DIAGNOSIS: NUCLEAR CATARACT, RIGHT EYE. PROCEDURE PERFORMED: PHACOEMULSIFICATION WITH POSTERIOR CHAMBER INTRAOCULAR LENS IMPLANT, RIGHT EYE. SURGEON: Alex Correa DO MEDICATIONS AND ANESTHESIA: Versed: IV Versed Tetracaine drops: 1 to 2 drops given as needed COMPLICATION: None INDICATIONS FOR SURGERY: Medical necessity: Best corrected visual acuity worse than 20/40 secondary to cataracts with impairment of ability to carry out needs or desired activities, blurred vision, visual distortion, reduced contrast sensitivity and/or glare with association functional impairment and supporting documentation/testing, and cataracts causing symptomatic impairment of visual functions not corrected with tolerable changes in glasses or contact lenses interfering with activities of daily life. PROCEDURE: Consent: The risks, benefits and alternatives of this procedures was discussed with the patient. The patient read and signed the consent forms, was identified and was seated in the exam chair. IOL: MX 60 E 23.5 IOL Diopters: Phacoemulsification with posterior chamber intraocular lens implant: The face was prepped with 5% povidone iodine solution, and a few drops of 5% povidone iodine solution was instilled into the inferior fornix. A non-fenestrated drape was placed over the eye and the lids were parted with the speculum. A paracentesis was made with a 15 degree blade, and 1% lidocaine MPF followed by viscoelastic was injected into the anterior chamber. A 2.4 mm metal micro- keratome was used to create a temporal clear corneal incision. A circular anterior capsulorrhexis was created, followed by hydro-dissection and hydro- delineation. The phacoemulsification hand piece was inserted and the nucleus was removed with the Phaco chop technique. The irrigation-aspiration hand piece was used to remove the residual cortex, and vacuum the posterior capsule. The capsular bag was inflated and viscoelastic and the above-mentioned IOL was injected into the eye with care to insert both leaning and trailing haptics in the capsular bag. The irrigation/aspiration hand piece was reinserted to remove residual viscoelastic from the capsular bag and anterior chamber. The corneal incision was hydrated, and anterior chamber was inflated with sterile BSS via the paracentesis site, and found to be watertight. Postop medication: 1 drop of prednisolone into operative by followed by 1 drop of Cosopt into operative eye followed by 1 drop of Besivance intraoperative by other:
== END 2020-11-28 11:38 | disposition home or self-care (01) ==
LOC: SC 09:41
PROVIDERS: ATTEND Ophthalmology
DX: H25.11 Age-related nuclear cataract, right eye (principal); M19.90 Unspecified osteoarthritis, unspecified site; E78.00 Pure hypercholesterolemia, unspecified; E03.9 Hypothyroidism, unspecified; G20 Parkinson's disease; E66.9 Obesity, unspecified
CPT/HCPCS: 66984; V2632; J2250; J3490 ×2; A9270; J0171

== ENCOUNTER 2020-12-14 09:43 | Day surgery (SDC) | payer MEDICARE, OTHER ==
[~2020-12-14 09:43] MED LIST changes: -KETOROLAC TROMETHAMINE 0.45% 4 DROP/0.4 ML DROPERETTE OD PRN; +KETOROLAC TROMETHAMINE 0.45% 4 DROP/0.4 ML DROPERETTE OS PRN; -MIDAZOLAM 2 MG/2 ML INJ ONE
[2020-12-14] MEDS ORDERED: MIDAZOLAM 2 MG/2 ML INJ ONE (09:59)
[2020-12-14] MEDS: BESIFLOXACIN HCL 0.6% OPH SUSP 5 ML BOTTLE OS PRN ×4 (10:30→11:27)
[2020-12-14] MEDS: TROPICAMIDE 1% OPH SOLN 15 ML OS PRN ×3 (10:30→10:59)
[2020-12-14] MEDS: TETRACAINE HCL 0.5% OPH SOLN 4 ML OS PRN ×3 (10:30→11:03)
[2020-12-14] MEDS: CYCLOPENTOLATE 0.2%/PHENYLEPHRINE 1% OPH SOLN 2 ML OS PRN ×3 (10:30→10:59)
[2020-12-14] MEDS: MOXIFLOXACIN 1 MG/ML-BSS OPH SOLN 1 ML VIAL ONE ×2 (11:26)
[2020-12-14] MEDS: PREDNISOLONE ACETATE 1% OPH SUSP 5 ML OS PRN ×2 (11:27)
[2020-12-14] MEDS: DORZOLAMIDE HCL 2%/TIMOLOL MALEAT 0.5% OPH SOLN 10 ML OS PRN ×2 (11:27)
--- NOTE | 2020-12-14 15:33 | Operative Report ---
Operative Report-[facility] Operative Report: DATE OF SURGERY: December 14, 2020 PREOPERATIVE DIAGNOSIS: NUCLEAR CATARACT, LEFT EYE. POSTOPERATIVE DIAGNOSIS: NUCLEAR CATARACT, LEFT EYE. PROCEDURE PERFORMED: PHACOEMULSIFICATION WITH POSTERIOR CHAMBER INTRAOCULAR LENS IMPLANT, LEFT EYE. SURGEON: Alex Correa DO MEDICATIONS AND ANESTHESIA: Versed: IV Versed Tetracaine drops: 1 to 2 drops given as needed COMPLICATION: None INDICATIONS FOR SURGERY: Medical necessity: Best corrected visual acuity worse than 20/40 secondary to cataracts with impairment of ability to carry out needs or desired activities, blurred vision, visual distortion, reduced contrast sensitivity and/or glare with association functional impairment and supporting documentation/testing, and cataracts causing symptomatic impairment of visual functions not corrected with tolerable changes in glasses or contact lenses interfering with activities of daily life. PROCEDURE: Consent: The risks, benefits and alternatives of this procedures was discussed with the patient. The patient read and signed the consent forms, was identified and was seated in the exam chair. IOL: MX 60 E 25.0 IOL Diopters: Phacoemulsification with posterior chamber intraocular lens implant: The face was prepped with 5% povidone iodine solution, and a few drops of 5% povidone iodine solution was instilled into the inferior fornix. A non-fenestrated drape was placed over the eye and the lids were parted with the speculum. A paracentesis was made with a 15 degree blade, and 1% lidocaine MPF followed by viscoelastic was injected into the anterior chamber. A 2.4 mm metal micro- keratome was used to create a temporal clear corneal incision. A circular anterior capsulorrhexis was created, followed by hydro-dissection and hydro- delineation. The phacoemulsification hand piece was inserted and the nucleus was removed with the Phaco chop technique. The irrigation-aspiration hand piece was used to remove the residual cortex, and vacuum the posterior capsule. The capsular bag was inflated and viscoelastic and the above-mentioned IOL was injected into the eye with care to insert both leaning and trailing haptics in the capsular bag. The irrigation/aspiration hand piece was reinserted to remove residual viscoelastic from the capsular bag and anterior chamber. The corneal incision was hydrated, and anterior chamber was inflated with sterile BSS via the paracentesis site, and found to be watertight. Postop medication:1 drop of prednisolone into operative by followed by 1 drop of Cosopt into operative eye followed by 1 drop of Besivance intraoperative by Other:
== END 2020-12-14 12:19 | disposition home or self-care (01) ==
LOC: SC 09:43
PROVIDERS: ATTEND Ophthalmology
DX: H25.12 Age-related nuclear cataract, left eye (principal); Z98.41 Cataract extraction status, right eye; M19.90 Unspecified osteoarthritis, unspecified site; E78.00 Pure hypercholesterolemia, unspecified; E03.9 Hypothyroidism, unspecified; G20 Parkinson's disease; Z79.82 Long term (current) use of aspirin; Z79.899 Other long term (current) drug therapy; E66.9 Obesity, unspecified
CPT/HCPCS: 66984; V2632; J2250; J3490 ×3; A9270; J0171